=== PATIENT | male | born 1965 | race Hispanic/Latino ===

== ENCOUNTER 2018-05-08 18:43 | Emergency (ER) | payer SELFPAY ==
[2018-05-08 18:43] VITALS: BMI 23.1
--- NOTE | 2018-05-08 19:12 | C.PDOC ---
History Of Present Illness 53 y/o male pt presents to the ER for substance and heroin abuse. Pt reports he used 2 bags of "dope". Pt was given Narcan [employer] and is currently not in acute distress. Pt is agreeable with any observations in the ER but declines any lab work. Pt was seen here prior for similar complaint. Time Seen by Provider: 05/08/18 18:53 Chief Complaint (Nursing): Substance Abuse History Per: Patient History/Exam Limitations: no limitations Onset/Duration Of Symptoms: Hrs Current Symptoms Are (Timing): Still Present Suicide/Self Injury Attempted (Context): None Modifying Factor(s): Cocaine Past Medical History Reviewed: Historical Data, Nursing Documentation, Vital Signs - Medical History PMH: Fractures (left ankle), HTN - [facility] Procedures EXCISION OF LEFT TIBIA, OPEN APPROACH (01/31/16) INJECT/INFUSE NEC (12/17/13) INTRODUCTION OF SERUM/TOX/VACCINE INTO MUSCLE, PERC APPROACH (01/31/16) OTHER SKIN & SUBQ I D (08/06/14) REMOVAL OF INT FIX FROM L ANKLE JT, OPEN APPROACH (01/31/16) Family History: States: Unknown Family Hx - Social History Hx Alcohol Use: Yes Hx Substance Use: Yes - Immunization History Hx Tetanus Toxoid Vaccination: No Hx Influenza Vaccination: No Hx Pneumococcal Vaccination: No Review Of Systems Except As Marked, All Systems Reviewed And Found Negative. Constitutional: Positive for: Other (substance abuse ) Neurological: Negative for: Weakness, Numbness Physical Exam - Physical Exam Appears: Non-toxic, No Acute Distress Skin: Warm, Dry Head: Normacephalic Eye(s): bilateral: Normal Inspection Nose: Normal Oral Mucosa: Moist Throat: Normal Neck: Normal ROM, Supple Chest: Symmetrical Cardiovascular: Rhythm Regular Respiratory: Normal Breath Sounds, No Rales, No Rhonchi, No Wheezing Gastrointestinal/Abdominal: Soft, No Tenderness Neurological/Psych: Oriented x3, Normal Speech, Normal Cognition, Normal Motor, Normal Sensation Medical Decision Making Medical Decision Making: plans: -- finger stick pt observed for 3 hours. upon reassessment pt no longer bedside pt eloped. Disposition - Disposition Disposition: ELOPEMENT - ER ONLY Disposition Time: 20:00 Condition: UNKNOWN Forms: [facility] ([place]ian) - Clinical Impression Clinical Impression: Overdose - Scribe Statement The provider has reviewed the documentation as recorded by the Scribe Schaefer Do Provider Attestation: All medical record entries made by the Patrick were at my direction and personally dictated by me. I have reviewed the chart and agree that the record accurately reflects my personal performance of the history, physical exam, medical decision making, and the department course for this patient. I have also personally directed, reviewed, and agree with the discharge instructions and disposition.
[2018-05-08 20:23] VITALS: BP 109/78; PULSE 87; RESP 14; TEMP 98.6; O2SAT 95
== END 2018-05-08 22:08 | disposition left against medical advice (07) ==
LOC: C.ER 18:43
DX: T40.1X1A Poisoning by heroin, accidental (unintentional), initial encounter (principal); I10 Essential (primary) hypertension